=== PATIENT | female | born 1995 | race Caucasian/White ===

== ENCOUNTER 2018-11-14 20:30 | Emergency (ER) | payer SELFPAY ==
[~2018-11-14] VITALS: Ht 152.4 cm; Wt 58.5 kg
[2018-11-14 23:17] LABS: BASOPHIL % 0.4 % (0-2); PLATELET COUNT 305 x10^3mcL (130-400); RED CELL DISTRIBUTION WIDTH 14.1 % (11.5-14.5)
[2018-11-14 23:32] LABS: CALCIUM 9.3 mg/dL (8.5-10.1); CARBON DIOXIDE 22.9 mmol/L (21-32); CHLORIDE SERUM 102 mmol/L (98-107); CREATININE SERUM 0.7 mg/dL (0.6-1.0); GFR1 > 60 mL/min; GLUCOSE SERUM 74 mg/dL (74-106); POTASSIUM SERUM 3.5 mmol/L (3.5-5.1); SODIUM SERUM 142 mmol/L (136-145)
[2018-11-14 23:46] LABS: ALBUMIN 4.2 g/dL (3.4-5.0); ALKALINE PHOSPHATASE 61 U/L (46-116); ALT/SGPT 19 U/L (14-59); AST/SGOT 22 U/L (15-37); BILIRUBIN TOTAL 0.6 mg/dL (0.20-1.00); FREE T4 1.06 ng/dL (0.76-1.46)
[2018-11-15 01:41] VITALS: BP 105/64
== END 2018-11-15 01:41 | disposition home or self-care (01) ==
LOC: ED 20:30
PROVIDERS: Emergency Medicine
DX: R07.89 Other chest pain (principal); F41.9 Anxiety disorder, unspecified; Z98.890 Other specified postprocedural states
CPT/HCPCS: 36415; 36600; 84439; 85378; Q0092

== ENCOUNTER 2018-12-11 16:03 | Emergency (ER) | payer SELFPAY ==
[~2018-12-11] VITALS: Ht 157.5 cm; Wt 57.6 kg
[2018-12-11 16:12] VITALS: Ht 157.5 cm; Wt 57.6 kg
[2018-12-11 19:09] VITALS: BP 125/80
== END 2018-12-11 19:10 | disposition home or self-care (01) ==
LOC: ED 16:03
DX: R09.1 Pleurisy (principal); R05 Cough; F41.9 Anxiety disorder, unspecified
CPT/HCPCS: J1885

== ENCOUNTER 2019-09-21 21:53 | Emergency (ER) | payer SELFPAY ==
[~2019-09-21] VITALS: Ht 157.5 cm; Wt 57.3 kg
[2019-09-21 22:26] VITALS: Ht 157.5 cm; Wt 57.3 kg
[2019-09-21 23:48] VITALS: BP 118/87
== END 2019-09-21 23:48 | disposition home or self-care (01) ==
LOC: ED 21:53
DX: S09.90XA Unspecified injury of head, initial encounter (principal); Z98.890 Other specified postprocedural states; W22.8XXA Striking against or struck by other objects, initial encounter; Y93.89 Activity, other specified; Y92.89 Other specified places as the place of occurrence of the external cause; Y99.8 Other external cause status